=== PATIENT | female | born 1960 | race Caucasian/White ===

== ENCOUNTER 2021-03-20 13:46 | Emergency (ER) | payer OTHER ==
[~2021-03-20] VITALS: Ht 177.8 cm; Wt 109.0 kg
[2021-03-20] MEDS ORDERED: ONDANSETRON PF 4 MG/2 ML VIAL. IV ONE (14:00)
[2021-03-20] MEDS ORDERED: MORPHINE SULFATE 4 MG/ML VIAL. IV ONE ×2 (14:00→16:45)
--- NOTE | 2021-03-20 14:09 | ED.ADGEN ---
Past Medical History Past Medical History: No Pertinent History Past Surgical History: Cholecystectomy, Hysterectomy, Other Additional Past Surgical Histo: GASTRIC BYPASS/HERNIA/5 SURG FOR MESH REMOVAL Smoking Status: Never Smoker Alcohol Use: None General Adult EDM: Chief Complaint: WRIST PAIN HPI: HPI: Patient is a 61 year old female who presents emergency department with complaints of right wrist pain and deformity after falling today. Patient reports that she tripped and fell landing on a hardwood floor. She denies any numbness, tingling, or decreased sensation of the affected extremity. Patient states she is dominantly right-handed. She currently rates pain 8 out of 10 on the pain scale, she denies any alleviating factors, the pain is worse with palpation and attempted movement. Review of Systems: Review of Systems: Complete ROS is negative unless otherwise noted in HPI. Current Medications: Current Medications Medications (Trade) Dose Ordered Sig/Ross Start Time Stop Time Status Last Admin Dose Admin Bupivacaine HCl (Sensorcaine Mpf 0.5%) 30 ml STK-MED ONCE 03/20/21 17:40 03/20/21 17:40 DC Dexamethasone Sodium Phosphate (Decadron) 4 mg STK-MED ONCE 03/20/21 15:20 03/20/21 17:20 DC Fentanyl Citrate (Fentanyl 2ml Vial) 100 mcg STK-MED ONCE 03/20/21 15:23 03/20/21 17:23 DC Hydromorphone HCl (Dilaudid) 0.5 mg PRN Q10MIN PRN 03/20/21 15:30 03/21/21 15:29 Lidocaine HCl (Lidocaine Pf 2% Vial) 5 ml STK-MED ONCE 03/20/21 15:20 03/20/21 17:20 DC Morphine Sulfate (Morphine Sulfate) 4 mg 1X ONCE 03/20/21 16:45 03/20/21 16:46 DC 03/20/21 16:53 4 MG Ondansetron HCl (Zofran) 4 mg STK-MED ONCE 03/20/21 15:20 03/20/21 17:20 DC Prochlorperazine Edisylate (Compazine) 10 mg 1X ONCE 03/20/21 16:45 03/20/21 16:46 DC 03/20/21 16:52 10 MG Propofol (Diprivan) 200 mg STK-MED ONCE 03/20/21 15:20 03/20/21 17:20 DC Ringer's Solution 1,000 ml @ 75 mls/hr 1X ONCE 03/20/21 18:15 03/21/21 07:34 Ropivacaine (Naropin 0.5%) 20 ml STK-MED ONCE 03/20/21 17:39 03/20/21 17:40 DC Allergies: Allergies: Allergies Coded Allergies Type Severity Reaction Last Updated Verified No Known Drug Allergies 03/20/21 No Physical Exam: PE: See Above Constitutional: Well developed, well nourished, no acute distress, non-toxic appearance. [] HENT: Normocephalic, atraumatic, bilateral external ears normal, nose normal. [] Eyes: PERRLA, EOMI, conjunctiva normal, no discharge. [] Neck: Normal range of motion, no stridor. [] Cardiovascular:Heart rate regular rhythm Lungs & Thorax: Respirations even and unlabored, no retractions, no respiratory distress Skin: Warm, dry, no erythema, no rash. [] Extremities: Right wrist: Obvious deformity to the lateral aspect, no crepitus, 2+ radial pulse, normal sensation, cap refill less than 2 seconds, no cyanosis, ROM limited due to pain Neurologic: Alert and oriented X 3, no focal deficits noted. [] Psychologic: Affect normal, judgement normal, mood normal. [] Current Patient Data: Labs: Laboratory Tests Test 03/20/21 15:34 SARS-CoV-2 Antigen (Rapid) Negative (NEGATIVE) Vital Signs: Vital Signs Date Time Temp Pulse Resp B/P (MAP) Pulse Ox O2 Delivery O2 Flow Rate FiO2 03/20/21 17:44 97.6 63 20 96 97.6 03/20/21 17:01 156/75 (102) Room Air EKG: EKG: [] Heart Score: C/O Chest Pain: No Risk Scores: Score 0 - 3: 2.5% MACE over next 6 weeks - Discharge Home Score 4 - 6: 20.3% MACE over next 6 weeks - Admit for Clinical Observation Score 7 - 10: 72.7% MACE over next 6 weeks - Early Invasive Strategies Radiology/Procedures: Radiology/Procedures: []PROCEDURE: WRIST 3V RIGHT EXAM: XR RT WRIST 3VIEWS 03/20/2021 2:05 PM CLINICAL INDICATION: Right wrist deformity after fall COMPARISON: None TECHNIQUE: 2 views of the right wrist FINDINGS: There is a distal radial metaphyseal fracture with dorsal angulation of the distal fragment. Probable intra-articular extension. Moderate soft tissue swelling. IMPRESSION: Angulated distal radius fracture. Course & Med Decision Making: Course & Med Decision Making Pertinent Labs and Imaging studies reviewed. (See chart for details) 1500-Dr. Aparicio at bedside to evaluate patient. Will order SARS Covid test, Dr. Aparicio plans to take patient to the OR at 1830 to repair fracture. Patient's last NPO was at noon. We will keep patient in position of comfort per Dr. Aparicio no splint is necessary at this time. [] Dragon Disclaimer: Dragon Disclaimer: This electronic medical record was generated, in whole or in part, using a voice recognition dictation system. Attending Signature Attending Signature I have participated in the care of this patient and I have reviewed and agree with all pertinent clinical information above including history, exam, and recommendations. LAYLA LOOMIS APRN Mar 20, 2021 14:09 ARIADNA VASQUEZ MD Mar 20, 2021 18:27
--- NOTE | 2021-03-20 14:32 | RAD ---
EXAM: XR RT WRIST 3VIEWS 03/20/2021 2:05 PM CLINICAL INDICATION: Right wrist deformity after fall COMPARISON: None TECHNIQUE: 2 views of the right wrist FINDINGS: There is a distal radial metaphyseal fracture with dorsal angulation of the distal fragmen t. Probable intra-articular extension. Moderate soft tissue swelling. IMPRESSION: Angulated distal radius fracture. Electronically signed by: Diana Lion MD (03/20/2021 2:29 PM) [id number]
[2021-03-20] MEDS ORDERED: DEXAMETHASONE SOD PHOS 4 MG/ML VIAL ONE (15:20)
[2021-03-20] MEDS ORDERED: ONDANSETRON PF 4 MG/2 ML VIAL. ONE (15:20)
[2021-03-20] MEDS ORDERED: LIDOCAINE 2% PF 5 ML VIAL. ONE (15:20)
[2021-03-20] MEDS ORDERED: PROPOFOL 10 MG/ML (20ML) VIAL. IV ONE (15:20)
[2021-03-20] MEDS ORDERED: fentaNYL PF VIAL 100 MCG/2 ML VIAL ONE ×2 (15:23→20:08)
[2021-03-20] MEDS ORDERED: IV RINGERS,LACTATED 1000ML 1,000 ML IV SCH (15:30)
[2021-03-20] MEDS ORDERED: PROCHLORPERAZINE 10 MG/2 ML VIAL. IVP PRN (15:30)
[2021-03-20] MEDS ORDERED: fentaNYL PF VIAL 100 MCG/2 ML VIAL IVP PRN (15:30)
[2021-03-20] MEDS ORDERED: ceFAZolin SODIUM IV Push 1 GM VIAL. IVP ONE ×2 (16:45→18:47)
[2021-03-20] MEDS ORDERED: PROCHLORPERAZINE 10 MG/2 ML VIAL. IV ONE (16:45)
[2021-03-20] MEDS ORDERED: ROPIVacaine 0.5% PF 20 ML VIAL. ONE (17:39)
[2021-03-20] MEDS ORDERED: BUPIVACAINE MPF 0.5% 30 ML VIAL. ONE (17:40)
[2021-03-20] MEDS ORDERED: IV RINGERS,LACTATED 1000ML 1,000 ML IV ONE (18:15)
[2021-03-20] MEDS ORDERED: oxyCODONE/APAP 7.5/325 1 TAB TABLET PO ONE (20:00)
[2021-03-20] MEDS: fentaNYL PF VIAL 100 MCG/2 ML VIAL IVP PRN ×2 (20:16→20:21)
[2021-03-20] MEDS ORDERED: LABETALOL 20 MG/4 ML DISP.SYRIN. IVP ONE (20:26)
[2021-03-20] MEDS ORDERED: MORPHINE SULFATE 2 MG/ML VIAL. ONE (20:32)
[2021-03-20] MEDS: MORPHINE SULFATE 2 MG/ML VIAL. IVP PRN ×2 (20:37→20:45)
[2021-03-20] MEDS ORDERED: HYDROmorphone 2 MG/ML VIAL ONE (20:58)
[2021-03-20] MEDS ORDERED: hydrALAZINE 20 MG/ML VIAL. ONE (20:59)
[2021-03-20] MEDS: HYDROmorphone 2 MG/ML VIAL IVP PRN ×4 (21:06→21:37)
[2021-03-20] MEDS ORDERED: OXYC1TAB19 PO (21:07)
--- NOTE | 2021-03-20 21:08 | DISCH ---
DISCHARGE INSTRUCTIONS Condition on Discharge Condition on Discharge: Stable Activity After Discharge Activity Instructions for Disc: Other, see below (Fine motor use with right hand only such as eating writing typing but no lifting pushing or pulling) Weight Bearing Status after Di: Non weight bearing Diet after Discharge Diet after Discharge: Regular Wound Incision Care Wound/Incision Care: Ice to area for comfort, Keep wound elevated, Do not change dressing Contacting the DRJune after DC Call your doctor for: Concerns you may have Follow-Up Follow up with: Dr. Aparicio or David 1 week DANIELLE APARICIO MD Mar 20, 2021 21:08
[2021-03-20] MEDS ORDERED: hydrALAZINE 20 MG/ML VIAL. IVP ONE (21:15)
[2021-03-20 21:30] VITALS: BP 157/63
--- NOTE | 2021-03-20 22:03 | PDOC4 ---
Operative Note Operative Note Date of surgery: 03/20/2021 Preoperative diagnosis: Displaced right intra-articular distal radius fracture Postoperative diagnosis: Same with 2 part intra-articular distal radius fracture Operative procedure: Operative reduction internal fixation 2 part intra- articular distal radius fracture Surgeon: Alessandra Anesthesia: General Estimated blood loss: 20 cc Complications: None Operative indications: Please see my dictated emergency department consultation for detailed operative indications Operative text: Patient was identified procedure verified patient placed in the supine position on the operating table. After adequate amounts of general anesthesia were administered the right upper extremity was prepped and draped in standard sterile fashion with an arm tourniquet. After timeout was performed patient procedure identified and verified the right upper extremity was exsanguinated by Esmarch bandage tourniquet inflated to 250 mmHg and a standard volar Ar approach was carried out to the right distal radius. Subperiosteal dissection was carried out and a standard Erick volar distal radial locking plate was placed after reduction under fluoroscopic guidance and a provisional shaft screw placed for initial placement. Distal locking screws were placed individually under fluoroscopic guidance and anatomic reduction noted at the radius joint surface. Proximal locking screws were then placed along with a radial styloid screw all of which were noted to be in excellent positioning. Additional nonlocking fixation along with shaft along with locking fixation was added and all hardware checked under multiple fluoroscopic guidance and found to have essentially anatomic reduction at the wrist joint. Thorough irrigation carried out normal saline solution closure accomplished with buried Vicryl sutures subcuticular Monocryl Steri-Strips and Mastisol and the area was injected with half percent plain Marcaine sterile dressings were applied followed by a volar splint fingers were noted to be warm pink on deflation of the tourniquet patient was returned to recovery room stable condition having tolerated procedure well DANIELLE CANELA MD Mar 20, 2021 22:03
--- NOTE | 2021-03-21 03:20 | CONS ---
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 Had immediate onset of pain and deformity of her right dominant wrist. She has severe pain with any movement, about 7/10 with pain medication at rest and 10/10 with any movement, currently has the wrist elevated on a pillow. She denies any other injury, head injury, loss of consciousness. Denies any significant past medical history. PAST SURGICAL HISTORY: Significant for gastric bypass and multiple hernia surgeries and revisions with mesh removal, cholecystectomy, hysterectomy. SOCIAL HISTORY: Denies smoking, alcohol or drug use. ALLERGIES: She has no known drug allergies. REVIEW OF SYSTEMS: Denies any syncopal episode, chest pain, shortness of breath, recent febrile illness or other constitutional symptoms. She had no pain with her wrist prior to the injury and denies any head injury, visual changes, focal weakness, numbness, tingling, neck or back pain. PHYSICAL EXAMINATION: HEENT: Atraumatic, normocephalic. HEART: Regular rate and rhythm. LUNGS: Clear to auscultation bilaterally. ABDOMEN: Benign. EXTREMITIES: Examination the right wrist reveals closed injury with intact skin, but she has obvious deformity and a lot of pain with any movement of the fingers. Distal sensation and capillary refill are intact; however, she has normal examination of the contralateral left wrist, bilateral elbows and wrists with intact motor function, distal pulses and sensation in both upper extremities throughout. LABORATORY DATA: X-rays showed a displaced intra-articular right distal radius fracture. IMPRESSION: Right dominant wrist displaced distal radius fracture. TREATMENT PLAN: I have gone over with her the usual nonoperative poor results with attempted closed reduction or nonoperative treatment. We talked about the possibility of recommended operative reduction and internal fixation with volar plate and locking screw fixation with the rationale to restore the anatomy as much as possible. I indicated even under the best of circumstances; however, that she may have some continued pain, stiffness. There is a possibility of infection, nonhealing, nerve or blood vessel damage, medical or other anesthetic complications among others. All her questions were answered. She wishes to proceed with surgical evaluation and treatment, which will occur today as soon as her n.p.o. status allows as she had eaten it reported about 12:[address]: Nichol TID: [id number]
== END 2021-03-20 21:55 | disposition home or self-care (01) ==
LOC: ER 13:46
DX: S52.591A Other fractures of lower end of right radius, initial encounter for closed fracture (principal); Z20.822 Contact with and (suspected) exposure to COVID-19; R20.2 Paresthesia of skin; R60.0 Localized edema; Z90.49 Acquired absence of other specified parts of digestive tract; Z90.710 Acquired absence of both cervix and uterus; Z98.890 Other specified postprocedural states; W01.0XXA Fall on same level from slipping, tripping and stumbling without subsequent striking against object, initial encounter; Y93.89 Activity, other specified; Y92.89 Other specified places as the place of occurrence of the external cause; Y99.8 Other external cause status
CPT/HCPCS: 73110; 76000; 87426; 96374; 96375; 96376; 99284; J0360; J0690; J0780; J1100; J1170; J2270; J2405; J2704; J3010; J3490; J7120; U0003; U0005; J2795